=== PATIENT | male | born 1950 | race American Indian/Alaskan Native ===

== ENCOUNTER 2017-07-09 17:01 | Emergency (ER) | payer MEDICARE ==
[2017-07-09 17:07] VITALS: BP 125/66
[2017-07-09] MEDS ORDERED: TESSALON PERLES PO ONE (17:41)
[2017-07-09] MEDS ORDERED: MOTRIN PO ONE (17:41)
--- NOTE | 2017-07-09 18:22 | XRay Report ---
FINAL REPORT EXAM: XR CHEST ROUTINE 2V HISTORY: cough TECHNIQUE: 2 views of the chest. PRIORS: None. FINDINGS: Multiple sternotomy wires are noted. The cardiomediastinal silhouette appears normal. There is a right middle lobe airspace infiltrate consistent with pneumonia. The left lung is clear. The bones and soft tissues are unremarkable. IMPRESSION: Right middle lobe airspace infiltrate consistent with pneumonia
--- NOTE | 2017-07-09 18:25 | Emergency Department Report ---
- General Chief Complaint: Upper Respiratory Infection Stated Complaint: COUGH Time Seen by Provider: 07/09/17 17:41 Source: patient Mode of arrival: Ambulatory Limitations: No Limitations - History of Present Illness Initial Comments: This is a 67-year-old male nontoxic, well nourished in appearance, no acute signs of distress presents to the ED with c/o of productive cough, fever, chills , rhinorrhea, nasal congestion x2 weeks. Patient describes productive cough as yellow mucus production. Patient denies any sick contact. Patient denies any recent travels, long car, recent hospital stays. Patient denies any calf pain or calf tenderness. Patient denies any chest pain, short of breath, fever, chills, nausea, vomiting, hemoptysis, numbness, tingling, headache or stiff neck. Patient denies any allergies. PMH includes HTN. MD Complaint: fever, cough, rhinorrhea, nasal congestion -: week(s) (2) Severity: mild Consistency: constant Improves With: nothing Worsens With: nothing Associated Symptoms: fever, chills, rhinorrhea, nasal congestion, cough. denies : myalgias, diaphoresis, headache, sore throat, stiff neck, chest pain, shortness of breath, abdominal pain, nausea, vomiting, diarrhea, dysuria, rash, confusion, right sweats, weight loss, epistaxis, hoarseness, ear pain Treatments Prior to Arrival: none - Related Data Previous Rx's Medication Instructions Recorded Last Taken Type Azithromycin [Zithromax Z-MATT] 250 mg PO DAILY #6 tablet 07/09/17 Unknown Rx Benzonatate [Tessalon Perle] 100 mg PO Q8H PRN #20 capsule 07/09/17 Unknown Rx Ibuprofen [Motrin] 600 mg PO Q8H PRN #30 tablet 07/09/17 Unknown Rx Allergies Allergy/AdvReac Type Severity Reaction Status Date / Time No Known Allergies Allergy Unverified 07/09/17 17:06 ED Review of Systems ROS: Stated complaint: COUGH Other details as noted in HPI Constitutional: chills, fever Eyes: denies: eye pain, eye discharge, vision change ENT: denies: ear pain, throat pain Respiratory: cough. denies: shortness of breath, wheezing Cardiovascular: denies: chest pain, palpitations Endocrine: no symptoms reported Gastrointestinal: denies: abdominal pain, nausea, diarrhea Genitourinary: denies: urgency, dysuria Musculoskeletal: denies: back pain, joint swelling, arthralgia Skin: denies: rash, lesions Neurological: denies: headache, weakness, paresthesias Psychiatric: denies: anxiety, depression Hematological/Lymphatic: denies: easy bleeding, easy bruising ED Past Medical Hx - Past Medical History Hx Hypertension: Yes - Surgical History Hx Open Heart Surgery: Yes - Social History Smoking Status: Never Smoker Substance Use Type: None - Medications Home Medications: Home Medications Medication Instructions Recorded Confirmed Last Taken Type Azithromycin [Zithromax Z-MATT] 250 mg PO DAILY #6 tablet 07/09/17 Unknown Rx Benzonatate [Tessalon Perle] 100 mg PO Q8H PRN #20 capsule 07/09/17 Unknown Rx Ibuprofen [Motrin] 600 mg PO Q8H PRN #30 tablet 07/09/17 Unknown Rx ED Physical Exam - General Limitations: No Limitations General appearance: alert, in no apparent distress - Head Head exam: Present: atraumatic, normocephalic - Eye Eye exam: Present: normal appearance Pupils: Present: normal accommodation - ENT ENT exam: Present: normal exam, normal orophraynx, mucous membranes moist, TM's normal bilaterally, normal external ear exam - Neck Neck exam: Present: normal inspection, full ROM. Absent: tenderness, meningismus, lymphadenopathy - Respiratory Respiratory exam: Present: normal lung sounds bilaterally. Absent: respiratory distress, wheezes, rales, rhonchi, stridor, chest wall tenderness, accessory muscle use, decreased breath sounds, prolonged expiratory - Cardiovascular Cardiovascular Exam: Present: regular rate, normal rhythm, normal heart sounds. Absent: irregular rhythm, systolic murmur, diastolic murmur, rubs, gallop - GI/Abdominal GI/Abdominal exam: Present: soft, normal bowel sounds. Absent: distended, tenderness, guarding, rebound, rigid, diminished bowel sounds - Rectal Rectal exam: Present: deferred - Extremities Exam Extremities exam: Present: normal inspection, full ROM, normal capillary refill. Absent: tenderness - Back Exam Back exam: Present: normal inspection, full ROM - Neurological Exam Neurological exam: Present: alert, oriented X3, normal gait - Psychiatric Psychiatric exam: Present: normal affect, normal mood - Skin Skin exam: Present: warm, dry, intact, normal color. Absent: rash ED Course Vital Signs 07/09/17 17:03 Temperature 98.6 F Pulse Rate 91 H Respiratory 18 Rate Blood Pressure 125/66 O2 Sat by Pulse 95 Oximetry - Reevaluation(s) Reevaluation #1: 07/09/17 18:32 Patient is speaking in full sentences with no signs of distress noted. ED Medical Decision Making - Medical Decision Making This is a 67-year-old male that presents with PNA. Patient is stable and was examined by me. Chest x-ray has been obtained and dictated by radiologist. Patient is notified of x-ray results with no questions noted. Patient was consulted with Dr. Block and agrees to the ED plan of care and discharge treatment plan. Patient was instructed to increase hydration, rest and take Motrin for fever episodes. Patient received tesslone perrls, 1G of Rocephine, and Motrin in the ED. Vitals stable. Patient is nonfebrile and normal heart rate. Patient was instructed Follow-up with a primary care doctor in 3-5 days or if symptoms worsen and continue return to emergency room as soon as possible. At time time of discharge, the patient does not seem toxic or ill in appearance. No acute signs of distress noted. Patient agrees to discharge treatment plan of care. No further questions noted by the patient. Critical care attestation.: If time is entered above; I have spent that time in minutes in the direct care of this critically ill patient, excluding procedure time. ED Disposition Clinical Impression: PNA (pneumonia) Qualifiers: Pneumonia type: due to unspecified organism Laterality: right Lung location: middle lobe of lung Qualified Code(s): J18.1 - Lobar pneumonia, unspecified organism Disposition: DC-01 TO HOME OR SELFCARE Is pt being admited?: No Does the pt Need Aspirin: No Condition: Stable Instructions: Bacterial Pneumonia (ED), Azithromycin (By mouth), Ibuprofen (By mouth), Benzonatate (By mouth), Prednisone (By mouth) Additional Instructions: Follow-up with a primary care doctor in 3-5 days or if symptoms worsen and continue return to emergency room as soon as possible. Prescriptions: Azithromycin [Zithromax Z-MATT] 250 mg PO DAILY #6 tablet Benzonatate [Tessalon Perle] 100 mg PO Q8H PRN #20 capsule PRN Reason: Cough Ibuprofen [Motrin] 600 mg PO Q8H PRN #30 tablet PRN Reason: Pain Referrals: PRIMARY CARE, [Primary Care Provider] - 3-5 Days KELLI CALLEJAS MD [Staff Physician] - 3-[address] [facility] [Outside] - 3-5 Days [facility] [Outside] - 3-5 Days
[2017-07-09] MEDS ORDERED: XYLOCAINE 1% MPF 5 mL INFILTRATI ONE (18:37)
[2017-07-09] MEDS ORDERED: ROCEPHIN IM ONE (18:37)
== END 2017-07-09 19:01 | disposition home or self-care (01) ==
LOC: ED 17:01
DX: J18.1 Lobar pneumonia, unspecified organism (principal); I10 Essential (primary) hypertension
CPT/HCPCS: 71046; 96372; 99283; J0696

== ENCOUNTER 2021-09-05 14:54 | Emergency (ER) | payer MEDICARE ==
[2021-09-05] MEDS ORDERED: ONDANSETRON 4 MG/2 ML INJ IV ONE (16:12)
[2021-09-05] MEDS ORDERED: SODIUM CHLORIDE 0.9% 1000 ML 1,000 ML IV ONE (16:12)
[2021-09-05] MEDS ORDERED: FAMOTIDINE 20 MG/2 ML INJ IV ONE (16:12)
--- NOTE | 2021-09-05 16:17 | Emergency Department Report ---
ED Syncope HPI - General Chief Complaint: Syncope Stated Complaint: SYNCOPE Time Seen by Provider: 09/05/21 15:52 Source: patient, family Exam Limitations: no limitations - History of Present Illness Initial Comments: 71-year-old male with history of hypertension hyperlipidemia coronary artery disease status post CABG brought in by EMS for syncope. 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 He states he went outside to say goodbye to synagogue members and states that while standing outside for approximately 15 minutes, he began feeling lightheaded and dizzy and overheated and nauseated. His states that when he was put back into the synagogue, he became very diaphoretic and states that he was sweating and became unresponsive. Length of syncope is unknown. She states he did not have any falls head injury seizures or seizure-like activity. She states that his hands were placed in ice cold water. She states that they also gave him a bottle of water to drink. He eventually regained consciousness and was subsequently brought here to the ER. Patient states he feels actively nauseated and taste bile in his throat. He denies any preceding or active chest pain shortness of breath difficulty breathing or palpitations. He did not eat breakfast or drink any fluids prior to arrival or this morning. Pain 0 out of 10. Timing/Prior Episodes: single episode today Precipitating Factors: Positive: diaphoresis, lightheadedness Context: sitting, other (Standing outside in hot and humid weather) Loss of Consciousness: no loss of consciousness Current Symptoms: back to normal, nausea - Related Data Allergies/Adverse Reactions: Allergies No Known Allergies Allergy (Unverified 07/09/17 17:06) Home Medications: Ambulatory Orders Azithromycin [Zithromax Z-MATT] 250 mg PO DAILY #6 tablet 07/09/17 Benzonatate [Tessalon Perle] 100 mg PO Q8H PRN #20 capsule 07/09/17 Ibuprofen [Motrin] 600 mg PO Q8H PRN #30 tablet 07/09/17 ED Review of Systems ROS: Stated complaint: SYNCOPE Other details as noted in HPI Comment: All other systems reviewed and negative Constitutional: no symptoms reported Eyes: as per HPI ENT: as per HPI Respiratory: no symptoms reported Cardiovascular: as per HPI Endocrine: no symptoms reported Gastrointestinal: as per HPI, nausea Genitourinary: as per HPI Musculoskeletal: as per HPI Skin: as per HPI Neurological: weakness, other (Syncope) Psychiatric: denies: anxiety, depression, auditory hallucinations, visual hallucinations, homicidal thoughts Hematological/Lymphatic: denies: easy bruising, swollen glands ED Past Medical Hx - Past Medical History Previous Medical History?: Yes Hx Hypertension: Yes - Surgical History Hx Open Heart Surgery: Yes - Family History Family history: no significant - Social History Smoking Status: Never Smoker - Medications Home Medications: Home Medications Medication Instructions Recorded Confirmed Last Taken Type Azithromycin [Zithromax Z-MATT] 250 mg PO DAILY #6 tablet 07/09/17 Unknown Rx Benzonatate [Tessalon Perle] 100 mg PO Q8H PRN #20 capsule 07/09/17 Unknown Rx Ibuprofen [Motrin] 600 mg PO Q8H PRN #30 tablet 07/09/17 Unknown Rx ED Physical Exam - General Limitations: No Limitations, Other (Elderly male, mildly weak appearing, sp eaking in full sentences, no drooling no stridor no respiratory distress, breathing unlabored,) General appearance: alert, in no apparent distress - Head Head exam: Present: atraumatic, normocephalic, normal inspection - Eye Eye exam: Present: normal appearance, PERRL Pupils: Present: normal accommodation - ENT ENT exam: Present: normal exam, normal orophraynx, mucous membranes dry, normal external ear exam - Neck Neck exam: Present: normal inspection, full ROM. Absent: tenderness, mening ismus, lymphadenopathy, thyromegaly - Respiratory Respiratory exam: Present: normal lung sounds bilaterally - Cardiovascular Cardiovascular Exam: Present: regular rate, normal rhythm, normal heart sounds. Absent: bradycardia, tachycardia, irregular rhythm, systolic murmur, diastolic murmur, rubs, gallop, clicks, JVD, S3 - GI/Abdominal GI/Abdominal exam: Present: soft, normal bowel sounds. Absent: distended, tenderness, guarding, rebound, rigid, diminished bowel sounds, hyperactive bowel sounds, hypoactive bowel sounds, organomegaly, mass, bruit, pulsatile mass, hernia - Extremities Exam Extremities exam: Present: normal inspection, full ROM - Back Exam Back exam: Present: normal inspection, full ROM - Neurological Exam Neurological exam: Present: alert, oriented X3, CN II-XII intact, normal gait, motor sensory deficit, reflexes normal - Psychiatric Psychiatric exam: Present: normal affect, normal mood - Skin Skin exam: Present: intact, normal color ED Course Vital Signs 09/05/21 09/05/21 09/05/21 14:55 15:13 15:31 Temperature 97.7 F Pulse Rate 70 56 L 58 L Respiratory 18 19 Rate Blood Pressure 127/59 Blood Pressure 150/88 [Left] O2 Sat by Pulse 97 96 Oximetry 09/05/21 09/05/21 09/05/21 15:49 16:01 16:49 Temperature Pulse Rate 61 Respiratory 30 H Rate Blood Pressure 124/62 135/63 Blood Pressure [Left] O2 Sat by Pulse 100 97 93 Oximetry - Reevaluation(s) Reevaluation #1: 09/05/21 19:43 Patient reassessed multiple times. He remains mildly weak appearing. Patient is she states he did not want to be admitted to the hospital but is now verbalized agreement that he will be admitted. Reevaluation #2: 09/05/21 19:56 Patient verbalized agreement for admission but I was just informed by the nursing staff within the past 3 to 5 minutes that the patient is refusing to be admitted to the hospital. Patient to sign out AGAINST MEDICAL ADVICE. ED Medical Decision Making - Lab Data Result diagrams: 09/05/21 17:15 09/05/21 17:15 - EKG Data -: EKG Interpreted by Me EKG shows normal: sinus rhythm, axis, intervals, QRS complexes Rate: normal - EKG Data When compared to previous EKG there are: no significant change, previous EKG unavailable Interpretation: no acute changes, nonspecific ST-T wave marilu - Radiology Data Radiology results: report reviewed - Medical Decision Making 71-year-old male with multiple medical comorbidities brought in by his family members for witnessed syncopal episode. Vital signs stable. EKG demonstrates no evidence of acute ischemia, infarction, arrhythmia or dysrhythmia. Serum labs reviewed. Creatinine is 1.7. There are no serum creatinine available for prior comparison. The etiology of the patient's syncopal episode is unclear but underlying life threatening dysrhythmia remains a concern. I expressed this multiple times to both the patient and his . The patient initially stated he did not want to be admitted but subsequently agreed to be admitted. Case was reviewed with admitting hospitalist, Dr. Harry, via telephone. Dr. Harry verbalized agreement to have the patient admitted to the hospital service 7:50 PM: I was informed by the patient's nurse that the patient has decided he no longer wants to stay and is requesting to be discharged. Risk of leaving AGAINST MEDICAL ADVICE were discussed with the patient at his bedside. During this time the patient is awake alert and oriented to person place time and situation and is mentating well. Per my assessment the patient has decision-making capacity. Patient verbalized understanding of risk and is unable to explain his risk in his own words without any obvious confusion. His explanations are appropriate with respect to layman's terms. Nevertheless the patient is refusing admission. Patient signed out AGAINST MEDICAL ADVICE. Critical Care Time: No Critical care attestation.: If time is entered above; I have spent that time in minutes in the direct care of this critically ill patient, excluding procedure time. ED Disposition Clinical Impression: Syncope Disposition: 07 LEFT AGAINST MEDICAL ADVICE Is pt being admited?: No Does the pt Need Aspirin: No Condition: Stable Instructions: Syncope (ED)
--- NOTE | 2021-09-05 16:31 | XRay Report ---
CHEST 1 VIEW INDICATION / CLINICAL INFORMATION: weakness, syncope STUDY TIME: 1615 COMPARISON: 07/09/2017 FINDINGS: SUPPORT DEVICES: None HEART / MEDIASTINUM: Stable. LUNGS / PLEURA: Previous right basilar infiltrate has resolved. No obvious infiltrates are seen at th is time. No pleural effusions noted. Pulmonary vascularity appears within normal limits. No pneumotho rax. ADDITIONAL FINDINGS: No significant additional findings. Signer Name: Emigdio Perry MD Signed: 09/05/2021 4:26 PM Workstation Name: [id number]
--- NOTE | 2021-09-05 16:56 | Cat Scan Report ---
CT head/brain wo con INDICATION: slurred speech,syncope. TECHNIQUE: Routine CT head. All CT scans at this location are performed using CT dose reduction for A JED by means of automated exposure control. COMPARISON: None. FINDINGS: Intracranial: Perry-white matter differentiation is maintained. No intracranial hemorrhage. No extra a xial collection. No hydrocephalus. No herniation. Sinuses: Paranasal sinuses and mastoid air cells are essentially clear. Orbits: Globes are intact. Calvarium: No acute fracture. IMPRESSION: 1. No acute intracranial abnormality. Signer Name: Ector Curtis MD Signed: 09/05/2021 4:51 PM Workstation Name: [id number]
[2021-09-05 17:38] LABS: Basophils % (Auto) 0.3 % (0.0-1.8); Eosinophils % (Auto) 0.1 % (0.0-4.3); Hematocrit 46.9 % (35.5-45.6); Hemoglobin 15.2 gm/dl (11.8-15.2); Lymphocytes # (Auto) 1.3 K/mm3 (1.2-5.4); Lymphocytes % (Auto) 11.6 % (13.4-35.0); Mean Corpuscular HGB Conc 32 % (32-34); Mean Corpuscular Volume 86 fl (84-94); Monocytes # (Auto) 1.1 K/mm3 (0.0-0.8); Monocytes % (Auto) 9.6 % (0.0-7.3); Platelet Count 216 K/mm3 (140-440); Red Blood Count 5.44 M/mm3 (3.65-5.03); Red Cell Distribution Width 15.1 % (13.2-15.2)
[2021-09-05 18:05] LABS: Alanine Aminotransferase 30 units/L (7-56); Albumin 4.4 g/dL (3.9-5); BUN/Creatinine Ratio 9; Blood Urea Nitrogen 15 mg/dL (9-20); Calcium 9.3 mg/dL (8.4-10.2); Hemolysis Index 3
[2021-09-05 18:10] VITALS: BP 135/63
[2021-09-05 18:48] LABS: Bilirubin,Urine NEG (Negative); Blood,Urine NEG (Negative); Color,Urine Yellow (Yellow); Urobilinogen,Urine < 2.0 mg/dL (<2.0)
[2021-09-05 18:49] LABS: Hyaline Casts,Urine 3 /LPF; Mucus,Urine 3+ /HPF
--- NOTE | 2021-09-08 10:24 | Electrocardiograph Report ---
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
== END 2021-09-05 20:20 | disposition left against medical advice (07) ==
LOC: ED 14:54
DX: R42 Dizziness and giddiness (principal)
CPT/HCPCS: 36415; 70450; 71045; 80053; 81001; 84484; 85025; 87086; 93005; 96361; 96374; 96375; 99285; J2405; J3490; J7030